=== PATIENT | male | born 1965 | race Caucasian/White ===

== ENCOUNTER 2017-03-04 00:45 | Emergency (ER) | payer MEDICARE, OTHER ==
[~2017-03-04] VITALS: Ht 170.2 cm; Wt 82.5 kg
--- NOTE | ~2017-03-04 | CR253 ---
STS. [facility] A Service of [facility] & [facility] RADIOLOGY TEXT RESULTS PATIENT: ROLO CANDELARIA LOCATION: SED : 69 UNIT #: [id number] AGE: [address]: Pan Kwok MD SEX: M ORDER DR: [id number] [place] [id number] MR#: [id number] Acc #: [id number] NAME: ROLO CANDELARIA : 1965 SEX: M STUDY DATE/TIME: 03/04/2017 0202 UNIT: SED ROOM: STUDY DESCRIPTION: CR Tibia and Fibula 2 Views Rt Attending Physician: Pan Kwok M.D. Ordering Physician: Pan Kwok M.D. Primary Care Physician: Bill Hughes M.D. MEDICAL IMAGING REPORT This report is preliminary unless electronic signature is present. EXAM Right tib-fib, 03/04 at 0202. INDICATION Acute onset pain and swelling after falling at 11:00 p.m. tonight. FINDINGS AP and lateral views of the tibia and fibula were obtained. There is an old healed distal tibial diaphysis fracture. 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 No acute fracture or malalignment is identified. IMPRESSION ORIF of the tibia with an intramedullary perfecto. No acute fracture or malalignment. Dictated by... Addison Shankar Jr., M.D. THIS IS AN ELECTRONICALLY VERIFIED REPORT Addison Shankar Jr., M.D. at 03/05/2017 5:52 AM OMAR/xochitl TD: 03/04/2017 10:18 JOB #: [id number] MEDICAL IMAGING REPORT Page 1 of 1
--- NOTE | ~2017-03-04 | CR21 ---
[facility]. [facility] A Service of [facility] & [facility] RADIOLOGY TEXT RESULTS PATIENT: ROLO CANDELARIA LOCATION: SED : [birth year] UNIT #: [id number] AGE: [address]: Pan Kwok MD SEX: M ORDER DR: [id number] [place] [id number] E MR#: [id number] Acc #: [id number] NAME: ROLO CANDELARIA : 1965 SEX: M STUDY DATE/TIME: 03/04/2017 0202 UNIT: SED ROOM: STUDY DESCRIPTION: CR Ankle Min 3 Views Rt Attending Physician: Pan Kwok M.D. Ordering Physician: Pan Kwok M.D. Primary Care Physician: Bill Hughes M.D. MEDICAL IMAGING REPORT This report is preliminary unless electronic signature is present. EXAM Right ankle, 03/04 at 0202 hours. INDICATION Acute pain and swelling after a fall at 11:00 p.m. this evening. FINDINGS Three views of the right ankle were obtained. There is soft tissue swelling about the ankle. An intramedullary perfecto is spanning a distal tibia fracture that is old. No acute fracture or malalignment is seen. There is an old first metatarsal fracture. IMPRESSION Soft tissue swelling without acute fracture or malalignment. Old distal tibia fracture is seen and there is an old first metatarsal fracture. Dictated by... Addison Shankar Jr., M.D. THIS IS AN ELECTRONICALLY VERIFIED REPORT Addison Shankar Jr., M.D. at 03/05/2017 5:52 AM OMAR/xochitl TD: 03/04/2017 10:17 JOB #: [id number] MEDICAL IMAGING REPORT Page 1 of 1
[~2017-03-04 00:45] MED LIST: ASPIRIN81 M2 PO; BP MED; PHENOBARB; UNKNOWN MEDS; VITAMIN
[2017-03-04] MEDS ORDERED: LASIX PO (01:06)
[2017-03-04] MEDS ORDERED: ST. JOSEPH ASPI81 M2 PO (01:07)
[2017-03-04] MEDS ORDERED: LISINOPRIL30 MG PO (01:07)
[2017-03-04] MEDS ORDERED: LOPRESSOR PO (01:07)
[2017-03-04] MEDS ORDERED: CALCIUM 600 +1 EACH PO (01:08)
[2017-03-04] MEDS ORDERED: ZYRTEC10 M2 PO (01:08)
[2017-03-04] MEDS ORDERED: PHENOBARBITAL32.4 MG PO (01:09)
[2017-03-04] MEDS ORDERED: PAXIL30 MG PO (01:09)
[2017-03-04] MEDS ORDERED: ABILIFY5 MG PO (01:10)
[2017-03-04] MEDS ORDERED: ADVIL200 M2 PO (01:10)
== END 2017-03-04 03:14 | disposition home or self-care (01) ==
LOC: SED 00:45
DX: S93.411A Sprain of calcaneofibular ligament of right ankle, initial encounter (principal); S93.421A Sprain of deltoid ligament of right ankle, initial encounter; S93.491A Sprain of other ligament of right ankle, initial encounter; S93.431A Sprain of tibiofibular ligament of right ankle, initial encounter; Z79.82 Long term (current) use of aspirin; Z79.899 Other long term (current) drug therapy; Z88.8 Allergy status to other drugs, medicaments and biological substances; X50.1XXA Overexertion from prolonged static or awkward postures, initial encounter; Y92.009 Unspecified place in unspecified non-institutional (private) residence as the place of occurrence of the external cause
CPT/HCPCS: 73590; 73610; 99283